=== PATIENT | male | born 1990 | race Hispanic/Latino ===

== ENCOUNTER 2016-06-18 14:05 | Emergency (ER) | payer OTHER ==
[~2016-06-18] VITALS: Ht 167.6 cm; Wt 105.5 kg
[~2016-06-18 14:05] MED LIST: ALBU18HF INH; OLAN5TAB25 PO
[2016-06-18 14:18] VITALS: BP 141/78; PULSE 93; RESP 18; O2SAT 96
--- NOTE | 2016-06-18 14:24 | ED.REPORT ---
HPI-URI / Cough / Cold Date of Service June 18, 2016 ED Provider: History of Present Illness: 25-year-old male here for cough and shortness of breath for 2 weeks. He does not remember A cold at any time but he currently does not have a runny nose or sore throat or any other URI symptoms. He is sleeping well at night. He feels short of breath only when coughing. Denies chest pain. He is coughing up clear phlegm. He smokes over a pack a day. No fever, nausea, vomiting. He has a history of asthma has no inhalers at home Nursing Notes Stated Complaint: COUGHING AND HARD TO BREATHE Chief Complaint: Respiratory Complaints Nursing Notes Reviewed: Yes Allergies: Coded Allergies: No Known Allergies (Unverified Allergy, Unknown, 01/23/16) Scheduled Albuterol HFA (Proair HFA) 8.5 Gm Hfa.aer.ad 2 PUFFS INHALATION Q4H Olanzapine ODT (Zyprexa Zydis) 5 Mg Tab.disper 10 MG PO HS Scheduled PRN Albuterol Sulfate (Ventolin HFA Inhaler) 200 Puff/18 Gm Inhaler 1 PUFF INH Q4 PRN PRN For Wheezing General Time Seen by MD: 14:24 Chief Complaint Cough, non-productive Onset Occurred: 2 days ago Severity: Current: No pain currently Severity: Maximum: No pain Context: Immunization Status General: All up to date Past Medical History Past Medical History Notes: [place]. 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 Past Medical History Reports: Asthma, Mental illness Past Surgical History denies Smoking History Current Every Day Smoker Social History Alcohol Use: 1-3 per week Drug Use: Denies drug use Other Social History: Local resident Occupation lives with parents, no work or school 02/03/2016 Ambulatory Status Independent Review of Systems Basic Review of Systems Cardiovascular: No chest pain, No dyspnea on exertion, No orthopnea, No parox noct dyspnea, No palpitations Endocrine: No cold intolerance, No heat intolerance, No weight gain, No weight loss Psychiatric: Normal thought content Constitutional: Denies: Chills, Fatigue, Fever Respiratory: Reports: Dyspnea on exertion, Prod cough, white GI: Denies: Abdominal pain Complete sys rev & neg: except as marked. Physical Exam Initial Vital Signs Vital Signs (First) Date Time Temp Pulse Resp B/P Pulse Ox O2 Delivery O2 Flow Rate FiO2 06/18/16 14:18 36.5 93 18 141/78 96 Room Air Initial VS: Reviewed, Vital signs normal Head / Eyes: Atraumatic, Normocephalic, PERRL Neck: Supple, Non-tender, Full range of motion Cardiovascular: Regular rate & rhythm, Heart sounds normal, Intact distal pulses Abdomen / GI: Soft, Non-tender, No guarding, No rebound, No distention Skin: Warm, Dry, No cyanosis Neurologic: Alert, Oriented, Nonfocal Psychiatric: Mood/affect normal, Behavior normal, Normal thought content General/Constitutional: Awake, Alert, Well appearing ENT: Airway patent, Mucous membranes moist, Pharynx NL, Tympanic membs NL, Ext aud canal NL, Nose exam NL, No sinus tenderness Respiratory / Chest: Breath sounds NL, Breath sounds = bilat, No respiratory distress, No rales, No rhonchi, No wheezing, No retractions, No stridor Head / Eyes: Normocephalic, PERRL Interpretation & Diagnostics Interpretation & Diagnostics: Patient Name: MACIEJ BARRETT MR#: [id number] Location: SED Ordering Phys: Josefa Burdick [facility] Date of Service: 06/18/16 1429 PROCEDURE: X-RAY CHEST, TWO VIEWS ([id number]) INDICATIONS: cough TECHNIQUE: 2 views of the chest were acquired. COMPARISON: [facility], , XR CHEST 2VW, 02/03/2016, 15:27. FINDINGS: Surgical changes and devices: None. Lungs and pleura: No pleural effusions or pneumothorax. Lungs are clear. Mediastinum: Mediastinal contours are normal. Heart size is normal. Bones and chest wall: No suspicious bony abnormalities. Soft tissues appear unremarkable. IMPRESSION: 1. No acute cardiopulmonary disease. Re-Eval/Medical Decision Med Decision/Clinical Course Med Decision/Clinical Course: post albuterol tx pt feels improved, lungs clear, no respitory distress. Discharge & Departure Shift Change Sign-Out Response to Therapy: Improved Impression: Primary Impression: Asthma Asthma severity: unspecified severity Asthma complication type: uncomplicated Qualified Code: J45.909 - Unspecified asthma, uncomplicated Disposition: Home Discharge Condition All VS Reviewed: Yes Condition: Stable Patient Instructions: Asthma (GEN) Additional Instructions: Use albuterol inhaler as discussed 1-2 puffs every 4-6 hours as needed. NyQuil or DayQuil as needed for cough. If you get fevers, worsening shortness of breath or chest pain return to ER immediately. Otherwise follow-up with your doctor this week for further asthma care Referrals: [facility] (PCP) EDSupervising Provider for APC: Chante Moreno MD, Linnea K ARNP June 18, 2016 14:24
--- NOTE | 2016-06-18 14:58 | DRSVH ---
PROCEDURE: X-RAY CHEST, TWO VIEWS ([id number]) INDICATIONS: cough TECHNIQUE: 2 views of the chest were acquired. COMPARISON: [facility], CR, XR CHEST 2VW, 02/03/2016, 15:27. FINDINGS: Surgical changes and devices: None. Lungs and pleura: No pleural effusions or pneumothorax. Lungs are clear. Mediastinum: Mediastinal contours are normal. Heart size is normal. Bones and chest wall: No suspicious bony abnormalities. Soft tissues appear unremarkable. IMPRESSION: 1. No acute cardiopulmonary disease. Dictated by: Virgil Lloyd M.D. on 06/18/2016 at 14:50 Approved by: Virgil Lloyd M.D. on 06/18/2016 at 14:50
[2016-06-18] MEDS ORDERED: Albuterol 2.5 mg/3 mL Inhalation Solution NEB ONE (15:05)
[2016-06-18 15:21] VITALS: BP_SYST 130; BP_SYST 160; BP_DIAS 103; BP_DIAS 78; PULSE 73; PULSE 81; O2SAT 97; O2SAT 99
[2016-06-18 15:23] VITALS: PULSE 85; RESP 20; O2SAT 98
[2016-06-18] MEDS ORDERED: ALBU8.5H2 INHALATION (16:01)
== END 2016-06-18 16:06 | disposition home or self-care (01) ==
LOC: SED 14:05
DX: J45.909 Unspecified asthma, uncomplicated (principal); F17.200 Nicotine dependence, unspecified, uncomplicated
CPT/HCPCS: 71020; 94664; 99284; J7613